=== PATIENT | female | born 1975 | race Caucasian/White ===

== ENCOUNTER 2021-04-11 10:28 | Outpatient (CLI) | payer OTHER, SELFPAY ==
--- NOTE | 2021-04-11 10:10 | LES_PTH ---
PATIENT: HAILEY HASTINGS LOC: [facility] U#:[id number] AGE/SX: 46/F ROOM: RE04/11/[address]: Dr. Nelia Mckinney DO : 1975 BED: DIS: 04/11/2021 SPEC #: [id number] RECD: 04/11/21 11:51 STATUS: PATRICIA MARIELA #: [id number] LARS: 04/11/21 10:[address]: Nelia Mckinney DEPT: SURGICAL PATHOLOGY RECD BY: Maria Victoria Novak Tissues: Skin of labium, NOS Procedures: Surgery Specimen Level IV HEADER OPERATION: Punch biopsy PRE-OP DIAGNOSIS: Vulvar lesion TISSUE SUBMITTED: Left labial lesion MICROSCOPIC DIAGNOSIS Left labial lesion, punch biopsy: A piece of squamous mucosa with acanthosis, extensive hyperkeratosis, parakeratosis and mild chronic inflammation. Negative for malignancy. See comment. LUCIA:gwyn 04/12/2021 COMMENT Clinical correlation and appropriate follow up are necessary. Case has been reviewed in consultation with Dr. Everett who concurs with the above diagnosis. IDC:AM MICROSCOPIC DESCRIPTION Slides are reviewed. GROSS DESCRIPTION Received in fixative is one container labeled with the patient's name and designated left labial lesion. The specimen consists of a single irregular fragment of light adams tissue measuring 0.3 x 0.2 x 0.1 cm. The specimen is totally submitted in one cassette. / LUCIA:gwyn 04/11/21 TC:5 CPT: 00788
[2021-04-11 12:37] LABS: Thyroid Stim Hormone (TSH) 1.59 uIU/mL (0.358-3.74)
== END 2021-04-11 23:59 | disposition short-term general hospital (02) ==
LOC: WOBLAB 10:34
PROVIDERS: Visit Provider Student in an Organized Health Care Education/Training Program
DX: N90.89 Other specified noninflammatory disorders of vulva and perineum (principal); N93.9 Abnormal uterine and vaginal bleeding, unspecified
CPT/HCPCS: 36415; 84443; 88305

== ENCOUNTER 2021-04-18 11:37 | Outpatient (CLI) | payer OTHER, SELFPAY ==
--- NOTE | 2021-04-18 11:00 | EMB_PTH ---
PATIENT: HAILEY HASTINGS LOC: [facility] U#:[id number] AGE/SX: 46/F ROOM: RE04/18/[address]: Dr. Nelia Mckinney, : 1975 BED: DIS: 04/18/2021 SPEC #: [id number] RECD: 04/18/21 13:11 STATUS: PATRICIA MARIELA #: [id number] LARS: 04/18/21 11:[address]: Nelia Mckinney DEPT: SURGICAL PATHOLOGY RECD BY: Aelx Castro Tissues: Endometrium, NOS Procedures: Surgery Specimen Level IV HEADER OPERATION: Endometrial biopsy PRE-OP DIAGNOSIS: Abnormal uterine bleeding TISSUE SUBMITTED: Endometrial biopsy MICROSCOPIC DIAGNOSIS Endometrium, biopsy: Extensive glandular and stromal breakdown suggestive of perimenstrual endometrium. AM:gwyn 04/20/2021 MICROSCOPIC DESCRIPTION Slides are reviewed. GROSS DESCRIPTION Received in fixative is one container labeled with the patient's name and designated EMB. The specimen consists of multiple fragments of hemorrhagic soft tissue that in aggregate measure 2.5 x 2 x 0.2 cm. The specimen is totally submitted in one cassette. / SJ:rg 04/19/2021 TC:5 [facility]: [id number]
== END 2021-04-18 23:59 | disposition short-term general hospital (02) ==
LOC: LABSPEC 11:38
PROVIDERS: Visit Provider Student in an Organized Health Care Education/Training Program
DX: N93.9 Abnormal uterine and vaginal bleeding, unspecified (principal)
CPT/HCPCS: 88305

== ENCOUNTER 2021-06-22 08:29 | Day surgery (SDC) | payer OTHER, SELFPAY ==
[2021-06-16 16:11] LABS: Hemoglobin 7.1 g/dL (12.0-15.0); Mean Corp Hgb Conc 27.3 g/dL (32-36); Mean Corpuscular Hgb 15.7 pg (27.0-32.0); Mean Corpuscular Volume 57.5 fL (81-99); Mean Platelet Vol. 8.9 fl (6.2-12.0); POSITIVE MORPHOLOGY YES; Platelet Count 432 K/mm3 (150-450); RBC Distribution Width CV 23.3 % (11.6-14.6); RBC Distribution Width SD 44.6 fl (35.1-43.9); Red Blood Count 4.52 M/mm3 (4.2-5.4); White Blood Count 7.4 K/mm3 (4.4-11.0)
[2021-06-22] VITALS (7 sets, daily range): BP systolic 107–122; BP diastolic 67–74; PULSE 61–79; RESP 12–18; TEMP 36.3–36.7; O2SAT 92–100; BMI 39.0
--- NOTE | 2021-06-22 07:06 | HP.PCM.OB_ITS ---
History and Physical Date of Admission: 06/22/21 46 year old female 4 0 2 0 4, presented for: Hysteroscopy, dilation and curettage, endometrial ablation, and vulvar biopsy for menorrhagia and abnormal uterine bleeding, persistent vulvar ulcer. Menorrhagia causing anemia. Persistent vulvar ulcer not healing with topical agents. Previously biopsied benign. Excisional biopsy to be done. MEDICAL HISTORY: 1. Menorrhagia 2. Vulvar ulcer ALLERGIES: No Known Drug Allergies MEDICATIONS HISTORY: 1. clobetasol 0.05 % topical cream, apply thin layer to vulva nightly SURGICAL HISTORY: 1. P C/S with tubal 2. cholecystectomy 3. T and A MENSTRUAL HISTORY: LMP Known?- DefiniteAmount/Duration - excess amount, Regularity - Irregular, Frequency - 30+ days, LMP - 06/04/21, Age Onset Menarche - 7 PAST PREGNANCIES: Total Pregnancies - 6; Full Term Pregnancies - 4; Premature - 0; Abortions, Induced - 0; Abortions, Spontaneous - 2; Ectopics - 0; Multiple Births - 0; Living Children - 4 FAMILY HISTORY: 1. Diabetes Mellitus SOCIAL HISTORY: Alcohol Use - socially Smoking - denies smoking Drug Use - denies REVIEW OF SYSTEMS: GENERAL - Denies fever, or chills SKIN - Denies skin changes EYES - Denies visual changes EARS - Denies difficulty hearing NOSE - Denies nasal congestion or bleeding MOUTH - Denies sore throat or difficulty swallowing NECK - Denies pain or swelling RESPIRATORY - Denies shortness of breath or wheezing CARDIOVASCULAR - Denies palpitations or chest pain GASTROINTESTINAL - Denies nausea, vomiting, diarrhea, constipation GENITOURINARY - Denies dysuria, frequency of urination, incontinence of urine MUSCULOSKELETAL - Denies joint or muscle pain NEUROLOGICAL - Denies localized numbness or weakness PSYCHIATRIC - Denies depression or anxiety ENDOCRINE - Denies heat or cold intolerance, weight loss or gain HEMATO-IMMUNOLOGIC - Denies excessive bleeding with cuts PHYSICAL EXAMINATION BP- 110/62 Sitting, Right arm, regular cuff Weight- 230.0 lbs Height- 64.0 inch BMI:39.48 CONSTITUTIONAL - NAD, well nourished, and well developed SKIN - No rash, lesions, or ulcers HEENT - Normocephalic, PERRLA, EOMI LUNGS - CTA x2 without wheezes, crackles or rales CARDIAC - Regular rate and rhythm without rubs, murmurs, or gallops ABDOMEN - Without hepatosplenomegaly, distention, masses, rebound, or guarding; normal bowel sounds; no hernias EXTREMITIES - No edema or calf tenderness NEUROLOGICAL - Cranial nerves II-XII grossly intact PSYCHIATRIC - A and O to time, place, person, mood and affect DETAILED PELVIC EXAM External Genital Vagina - Left labia majora - 1 cm ulcerated lesion with smaller 2-3 mm lesion superiorly. At or above level of clitoris. 1-2 mm lesion right labia majora and White epithelial changes in figure of eight pattern starting superior to clitoris and extending to perineum (with small fissure there) and pe rianally. ASSESSMENT/PLAN: Hysteroscopy, dilation and curettage, endometrial ablation, and vulvar biopsy for menorrhagia and abnormal uterine bleeding, persistent vulvar ulcer. R/B/A discussed. Risks include, but are not limited to: risk of bleeding to the point of transfusion, infection, injury to surrounding tissue (bowel/bladder/ uterine perforation), VTE, ICU admission. Pt aware and consented
[2021-06-22 08:54] LABS: Internal QC Validated? YES +Cl - CLEAR BKGD
[2021-06-22 08:55] LABS: Pregnancy, Urine Negative Negative
[2021-06-22 09:09] LABS: Absolute Lymphocyte Count 1.53 X10^3/uL (0.83-4.51); Basophil# 0.03 X10^3/uL; Basophil% 0.4 % (0-1); Eosinophils% 1.3 % (0-5); Hematocrit 28.1 % (37-47); Hemoglobin 7.7 g/dL (12.0-15.0); Lymphocyte # 1.53 X10^3/ul (0.83-4.51); Lymphocyte % 20.4 % (19-41); Mean Corp Hgb Conc 27.4 g/dL (32-36); Mean Corpuscular Hgb 15.9 pg (27.0-32.0); Mean Corpuscular Volume 57.9 fL (81-99); Mean Platelet Vol. 8.2 fl (6.2-12.0); Monocyte# 0.78 X10^3/uL; Monocyte% 10.4 % (0-10); NRBC Flagged by Analyzer 0 % (0-5); Neutrophil # 5.03 X10^3/uL (2.7-7.7); POSITIVE MORPHOLOGY YES; Platelet Count 517 K/mm3 (150-450); RBC Distribution Width CV 23.1 % (11.6-14.6); RBC Distribution Width SD 45.4 fl (35.1-43.9); Red Blood Count 4.85 M/mm3 (4.2-5.4); White Blood Count 7.5 K/mm3 (4.4-11.0)
[2021-06-22 09:10] LABS: Differential Indicated SCAN CRITERIA MET
[2021-06-22] MEDS: Lactated Ringers 1,000 ML 15 ML IV (09:30)
[2021-06-22 09:36] LABS: Anisocytosis 3+; Differential Comment SCANNED; Hypochromasia 1+; Macrocytosis 1+; Microcytosis 2+; Polychromasia 1+
--- NOTE | 2021-06-22 10:22 | PCM.OPRPT ---
Report of Operation Date of Procedure: 06/22/21 Pre-Operative Diagnosis: Menorrhagia, Nonhealing vulvar ulcer, lichen sclerosus Post-Operative Diagnosis: Menorrhagia, Nonhealing vulvar ulcer, , lichen sclerosus Surgery/Procedure Performed:: Hysteroscopy, cervical dilation, endometrial ablation. Description of Surgical Findings:: Extensive lichen sclerosis. 1 cm partially ulcerative lesion left labia majora superior neoclitoris. two 3 mm ulcerative region right labia majora. Lichen sclerosis on labia and perianally. Small perineal fissure. Posterior prolapse grade 2. Normal-appearing endometrial cavity, thin lining. Bilateral tubal ostia noted. Type of Anesthesia: MAC Estimated Blood Loss (mL): 5 cc Fluids Replaced: 600 cc Description of Procedure: Indications risks benefits: 46-year-old female with menorrhagia and extensive lichen sclerosus. Plan for ablation and vulvar biopsy. All risk, benefits, alternatives discussed with the patient. Risks include but are not limited to: Risk of bleeding to the point of transfusion, infection, injury to surrounding tissue including bowel/bladder/uterine perforation, VTE, ICU admission. Patient aware and consented. Procedure: Patient taken to the operating room and MAC anesthesia induced. Patient placed in the dorsal lithotomy position and prepped and draped in the usual sterile fashion. Weighted speculum placed in the posterior vagina and Baltazar retractor used to visualize the cervix. Anterior lip of the cervix grasped with Allis clamp. Cervix sequentially dilated. Hysteroscope placed through the cervical canal and visualization of the endometrial cavity was completed as above. Hysteroscope removed. Uterus sounded to 10 cm, cervical length measured 5 cm. Areli device opened. Device placed through the cervical canal. Cavity assessments passed. Device deployed and ablation completed. Areli device removed, Allis clamp removed. Cervix hemostatic. Weighted speculum removed. Further examination of the external genitalia and vulva was completed. Findings noted as above. Decision to not complete vulvar excisional biopsy was made at that time. Concern for healing compromise was present. Had small punch biopsy that was negative for dysplasia in the past. We will plan to refer to specialist for further management due to severity of disease. At the end of the procedure all needle, lap, sponge counts were correct. No urine output measured. Complications None
--- NOTE | 2021-06-22 10:23 | PCM.DC ---
Discharge Instructions Diet Discharge Diet: No restrictions Activity Discharge Activity: Return to Normal Activity and May Shower May resume sexual activity in: 4-6 weeks Weight Bearing Status: Weight bearing as tolerated Lifting Restrictions: No greater than 25 pounds Dressing / Incision Call your doctor if your incision/area has: Continuous Slow Oozing, Increased Pain/ Swelling, Increased Redness and Foul Smelling Discharge Call your doctor if you observe: Fever of 101 or Higher, Change in Color, Inability to urinate, Using more than 1 pad per hour, Shortness of breath, Dizziness, Swelling in the ankles, Chest pain and Calf discomfort Cleanse incision/area with: Soap & Water Follow Up Care Please Follow Up With: Nelia Mckinney DO When: 2 week post operative visit Test Results: Test results from this visit will be discussed in further detail at your follow-up appointment, if applicable. Discharge Plan Admission Primary Reason for Your Visit: Ablation Attending Provider: Nelia Mckinney Primary Care Provider: Zohaib Frias Discharge Orders/Prescriptions Prescriptions: New oxycodone 5 mg tablet 5 mg PO Q6H PRN (Reason: pain (scale score 7-10)) 5 Days Qty: 5 RF: 0 Continued magnesium 100 mg Capsule 100 mg PO DAILY RF: 0 multivitamin Capsule 1 cap PO DAILY RF: 0 omega-3 fatty acids Capsule 1,000 mg PO DAILY RF: 0 Referrals / Follow Up: Zohaib Frias MD [Primary Care Provider] - Disposition Disposition (needs filled in before D/C Order can be placed): Home, Self Care
== END 2021-06-22 23:59 | disposition home or self-care (01) ==
LOC: SDC 08:32 → AC 08:35
PROVIDERS: Anesthesiology; PCP Family Medicine; Referring Provider Student in an Organized Health Care Education/Training Program; Visit Provider Student in an Organized Health Care Education/Training Program
PROC: 0U5B8ZZ Destruction of Endometrium, Via Natural or Artificial Opening Endoscopic (ICD-10-PCS; CPT 58558; principal; 2021-06-22 09:45)
DX: N76.6 Ulceration of vulva (principal); M06.9 Rheumatoid arthritis, unspecified; N90.4 Leukoplakia of vulva; N92.0 Excessive and frequent menstruation with regular cycle; K60.2 Anal fissure, unspecified
CPT/HCPCS: 58563; 00952; 36415; 81025; 85025; 85027; 86850; 86900; 86901; 87426; J7120; J2405

== ENCOUNTER → 2022-03-26 | Outpatient (CLI) | payer OTHER, SELFPAY ==
[2022-03-26 17:28] LABS: Estradiol 71.2 pg/mL; Follicle Stimulating Hormone 9.4 mIU/mL; Luteinizing Hormone 10.4 mIU/mL; Progesterone Level 6.75 ng/mL (See Comment)
== END | disposition home or self-care (01) ==
PROVIDERS: PCP Family Medicine; Visit Provider Student in an Organized Health Care Education/Training Program
DX: N95.8 Other specified menopausal and perimenopausal disorders (principal)
CPT/HCPCS: 36415; 82670; 83001; 83002; 84144